=== PATIENT | male | born 1940 | race Caucasian/White ===

== ENCOUNTER 2022-12-13 21:50 | Observation (INO) | payer OTHER ==
[2022-12-13 22:08] VITALS: BMI 26.6
[2022-12-14 01:02] LABS: BASO % 0.4 % (0-2.0); EOS % 2.9 % (0-4.5); HEMATOCRIT 40.1 % (35.4-49); HEMOGLOBIN 13.5 GM/dL (11.7-16.9); LYMPH % 16.8 % (8-40); MCHC 33.7 g/dl (32.0-35.9); MEAN CELL VOLUME 82.9 fl (80-96); MEAN PLT VOLUME 8.6 fl (7.5-11.1); NEUT % 72.9 % (42.8-82.8); PLATELET COUNT 168 10^3/uL (134-434); RBC 4.84 M/mm3 (4.00-5.60); RDW 15.7 % (11.9-15.9); WHITE BLOOD COUNT 7.3 K/mm3 (4.0-10.0)
[2022-12-14 01:12] LABS: INR 1.09 (0.83-1.09); PROTHROMBIN TIME (PATIENT) 12.6 SEC (9.7-13.0)
[2022-12-14 01:15] LABS: ACTIVATED PTT 27.1 SECONDS (25.2-36.5)
[2022-12-14 01:23] LABS: POTASSIUM 4.2 mmol/L (3.5-5.1)
[2022-12-14 01:24] LABS: CALCIUM 9.3 mg/dL (8.5-10.1)
[2022-12-14 01:25] LABS: ALBUMIN 3.2 g/dl (3.4-5.0)
[2022-12-14 01:26] LABS: BLOOD UREA NITROGEN 18.2 mg/dL (7-18)
[2022-12-14 01:28] LABS: CREATININE 1.2 mg/dL (0.55-1.3)
[2022-12-14 01:30] LABS: TOT PROT 5.8 g/dl (6.4-8.2)
[2022-12-14 01:31] LABS: BILIRUBIN,TOTAL 0.5 mg/dL (0.2-1)
[2022-12-14] MEDS ORDERED: NITROGLYCERIN SUBLINGUAL 1/150 0.4 MG TAB SL PRN (04:44)
[2022-12-14] MEDS: metoPROLOL SUCCINATE 25 MG TAB.SR.24H (FP) PO SCH (09:34)
[2022-12-14] MEDS: ASPIRIN COATED 81 MG TABLET.EC PO SCH (09:34)
[2022-12-14] MEDS: FINASTERIDE 5 MG TABLET (FP) PO SCH (09:34)
[2022-12-14] MEDS: CLOPIDOGREL BISULFATE 75 MG TABLET (FP) PO SCH (09:34)
[2022-12-14] MEDS: ENOXAPARIN NA (PORCINE) 40 MG/0.4 ML DISP.SYRIN SQ SCH (09:37)
[2022-12-14] MEDS: ATORVASTATIN CA 40 MG TABLET (FP) PO SCH (21:29)
[2022-12-15 07:37] LABS: BASO % 0.4 % (0-2.0); EOS % 3.2 % (0-4.5); HEMOGLOBIN 13.7 GM/dL (11.7-16.9); LYMPH % 18.8 % (8-40); MCH 27.5 pg (25.7-33.7); MCHC 32.7 g/dl (32.0-35.9); MEAN CELL VOLUME 84.1 fl (80-96); MEAN PLT VOLUME 9.4 fl (7.5-11.1); MONO % 6.1 % (3.8-10.2); NEUT % 71.5 % (42.8-82.8); PLATELET COUNT 168 10^3/uL (134-434); RBC 4.99 M/mm3 (4.00-5.60); RDW 15.3 % (11.9-15.9); WHITE BLOOD COUNT 6.4 K/mm3 (4.0-10.0)
[2022-12-15 07:56] LABS: POTASSIUM 4.2 mmol/L (3.5-5.1)
[2022-12-15 07:58] LABS: CALCIUM 9.1 mg/dL (8.5-10.1)
[2022-12-15 07:59] LABS: ALBUMIN 3.2 g/dl (3.4-5.0); BLOOD UREA NITROGEN 15.4 mg/dL (7-18); MAGNESIUM 2.3 mg/dL (1.8-2.4)
[2022-12-15 08:02] LABS: PHOSPHOROUS 2.8 mg/dL (2.5-4.9)
[2022-12-15 08:03] LABS: BILIRUBIN,TOTAL 0.7 mg/dL (0.2-1)
[2022-12-15 08:04] LABS: TOT PROT 5.4 g/dl (6.4-8.2)
[2022-12-15] MEDS: metoPROLOL SUCCINATE 25 MG TAB.SR.24H (FP) PO SCH (09:26)
[2022-12-15] MEDS: CLOPIDOGREL BISULFATE 75 MG TABLET (FP) PO SCH (09:26)
[2022-12-15] MEDS: ASPIRIN COATED 81 MG TABLET.EC PO SCH (09:26)
[2022-12-15] MEDS: FINASTERIDE 5 MG TABLET (FP) PO SCH (09:26)
[2022-12-15] MEDS: LISINOPRIL 5 MG TABLET PO SCH (09:26)
[2022-12-15] MEDS: ENOXAPARIN NA (PORCINE) 40 MG/0.4 ML DISP.SYRIN SQ SCH (09:29)
[2022-12-15] MEDS: ATORVASTATIN CA 40 MG TABLET (FP) PO SCH (21:08)
[2022-12-16] MEDS: ENOXAPARIN NA (PORCINE) 40 MG/0.4 ML DISP.SYRIN SQ SCH ×2 (09:26→09:52)
[2022-12-16] MEDS: CLOPIDOGREL BISULFATE 75 MG TABLET (FP) PO SCH (09:26)
[2022-12-16] MEDS: LISINOPRIL 5 MG TABLET PO SCH (09:26)
[2022-12-16] MEDS: FINASTERIDE 5 MG TABLET (FP) PO SCH (09:26)
[2022-12-16] MEDS: ASPIRIN COATED 81 MG TABLET.EC PO SCH (09:26)
[2022-12-16] MEDS: metoPROLOL SUCCINATE 25 MG TAB.SR.24H (FP) PO SCH (09:26)
[2022-12-16 09:41] VITALS: PULSE 79
[2022-12-16 14:32] VITALS: BP 128/84; RESP 18; TEMP 97.6
== END 2022-12-16 16:36 | disposition home or self-care (01) ==
LOC: JER 21:50 → OBSVTOIN 12-14 02:23 → UNDOADMOB 12-14 02:23 → JERBED 12-14 02:23 → INTOOBSV 12-14 02:23 → JERBED 12-14 03:14 → J4S 12-14 04:01 → JERBED 12-14 04:01
PROVIDERS: ADMIT Internal Medicine; ATTEND Internal Medicine
DX: I25.10 Atherosclerotic heart disease of native coronary artery without angina pectoris (principal); I11.9 Hypertensive heart disease without heart failure; E78.5 Hyperlipidemia, unspecified; Z95.0 Presence of cardiac pacemaker; Z87.891 Personal history of nicotine dependence; Z95.1 Presence of aortocoronary bypass graft
CPT/HCPCS: 36415; 70450-TC; 70496-TC; 70498-TC; 70544-TC; 70551-TC; 80053; 80061; 82550; 83036; 83735; 84100; 84443; 84484; 85025; 85610; 85730; 86850; 86900; 86901; 93005; 93010; 93306-TC; 93880-TC; 97116-GP; 97162-GP; 99285-25; G0378

== ENCOUNTER 2023-12-09 12:29 | Emergency (ER) | payer OTHER ==
[2023-12-09 13:02] VITALS: BP 102/63; PULSE 85; RESP 16; TEMP 97.5; BMI 25.3
== END 2023-12-09 15:29 | disposition left against medical advice (07) ==
LOC: FER 12:29
DX: R31.9 Hematuria, unspecified (principal); N13.9 Obstructive and reflux uropathy, unspecified; R35.0 Frequency of micturition
CPT/HCPCS: 99282-25